=== PATIENT | female | born 1945 | race Caucasian/White ===

== ENCOUNTER 2021-04-10 05:49 | Day surgery (SDC) | payer OTHER ==
[2021-04-09 12:40] LABS: COVID AG,FIA SOURCE NASOPHARYNGEAL
[~2021-04-10] VITALS: Ht 160 cm; Wt 76.4 kg
[~2021-04-10 05:49] MED LIST: KETOROLAC TROMETHAMINE 0.5% 5 ML OPHTHALMIC SOLUTION ONE; MOXIFLOXACIN HCL 0.5% 3 ML OPHTHALMIC SOLUTION ONE; PHENYLEPHRINE HCL 2.5% 2 ML OPHTHALMIC SOLUTION ONE; RINGERS SOLUTION,LACTATED 500 ML IV ONE; TROPICAMIDE 1% 2 ML OPHTHALMIC SOLUTION ONE
[2021-04-10] MEDS ORDERED: TETRACAINE HCL/PF 0.5% 4 ML OPHTHALMIC SOLUTION OD ONE (05:50)
[2021-04-10] MEDS ORDERED: CHONDR SULF A SOD/HYALURONATE 1.05 ML KIT IO ONE (05:50)
[2021-04-10] MEDS ORDERED: POVIDONE-IODINE 10% 15 ML SOLUTION UD TP ONE (05:50)
[2021-04-10] MEDS ORDERED: LIDOCAINE/PF 1% 2 ML VIAL CAUDAL ONE (05:50)
[2021-04-10] MEDS ORDERED: BALANCED SALT 15 ML OPHTHALMIC IRRIG.SOLN IO ONE (05:50)
[2021-04-10] MEDS ORDERED: EPINEPHrine 1:1,000 [1 MG/ML] AMP ET ONE (05:50)
[2021-04-10] MEDS: KETOROLAC TROMETHAMINE 0.5% 5 ML OPHTHALMIC SOLUTION OS SCH ×3 (06:29→06:39)
[2021-04-10] MEDS: MOXIFLOXACIN HCL 0.5% 3 ML OPHTHALMIC SOLUTION OS SCH ×3 (06:29→06:39)
[2021-04-10] MEDS: TROPICAMIDE 1% 2 ML OPHTHALMIC SOLUTION OS SCH ×3 (06:29→06:39)
[2021-04-10] MEDS: PHENYLEPHRINE HCL 2.5% 2 ML OPHTHALMIC SOLUTION OS SCH ×3 (06:29→06:39)
[2021-04-10 06:56] LABS: GLUCOMETER DEV NAME(LOC) SDS.; GLUCOSE,POINT OF CARE 111 MG/DL (70-110)
[2021-04-10] MEDS ORDERED: RINGERS SOLUTION,LACTATED 500 ML IV ONE (07:00)
[2021-04-10] MEDS ORDERED: CETI-450 PO (07:13)
[2021-04-10] MEDS ORDERED: GABA-1181 PO (07:13)
[2021-04-10] MEDS ORDERED: SERT-158 PO (07:13)
[2021-04-10] MEDS ORDERED: ARIP10TA38 PO (07:13)
[2021-04-10] MEDS ORDERED: ATOR40TA28 PO (07:13)
[2021-04-10] MEDS ORDERED: OSPE60TA2 PO (07:13)
[2021-04-10] MEDS ORDERED: ACET-3385 PO (07:13)
[2021-04-10] MEDS ORDERED: LISI-892 PO (07:13)
[2021-04-10] MEDS ORDERED: SENN-31 PO (07:13)
[2021-04-10] MEDS ORDERED: PANT-31 PO (07:13)
[2021-04-10] MEDS ORDERED: METF-960 PO (07:13)
[2021-04-10] MEDS ORDERED: BUPR150SR PO (07:13)
[2021-04-10] MEDS ORDERED: BACL10TA PO (07:13)
[2021-04-10] MEDS ORDERED: OXYB5TAB20 PO (07:13)
[2021-04-10] MEDS ORDERED: LEVO50 PO (07:13)
[2021-04-10] MEDS ORDERED: METO25 PO (07:13)
[2021-04-10] MEDS ORDERED: CLON-592 PO (07:13)
[2021-04-10] MEDS ORDERED: CALC-1062 PO (07:13)
[2021-04-10] MEDS ORDERED: MELA5TAB3 PO (07:13)
[2021-04-10] MEDS ORDERED: FentaNYL CITRATE PF 100 MCG/2 ML VIAL IVP ONE (12:00)
[2021-04-10] MEDS ORDERED: MIDAZOLAM HCL 2 MG/2 ML VIAL IVP ONE (12:00)
== END 2021-04-10 09:00 | disposition home or self-care (01) ==
LOC: SURGERY 05:49
PROVIDERS: ATTEND Ophthalmology
DX: E11.36 Type 2 diabetes mellitus with diabetic cataract (principal); H25.12 Age-related nuclear cataract, left eye; I10 Essential (primary) hypertension; Z79.899 Other long term (current) drug therapy; Z98.890 Other specified postprocedural states
CPT/HCPCS: 66984; 82962; 87426; 93005; A9575; C9803; J0171; J2250; J3010; J3490; J7120; V2632